=== PATIENT | female | born 1975 | race Two or more races ===

== ENCOUNTER → 2025-03-13 | Outpatient (CLI) | payer MEDICAID, SELFPAY ==
--- NOTE | 2025-03-13 15:00 | XR_ITS ---
Examination: Abdomen sonogram, complete Date and time of exam: March 13, 2025, 1522 hours INDICATIONS: Right upper abdominal pain today. Technique: Multiple real-time grayscale transabdominal sonographic images of the abdomen have been obtained. Findings: Contracted gallbladder multiple gallstones Gallbladder wall normal Common bile duct 0.2 cm Pancreatic head 2.6 cm Aorta not enlarged. Liver 13.1 cm fatty infiltration Normal hepatopedal portal venous flow Patent IVC Right kidney 10.7 cm cortex 1.2 cm Left kidney 12.6 cm renal cortex 1.8 cm Extrarenal pelvis bilaterally Spleen 11.7 cm IMPRESSION: Cholelithiasis, negative for cholecystitis
== END | disposition home or self-care (01) ==
LOC: CDIM 14:52
PROVIDERS: PCP Physician Assistant; Referring Provider Physician Assistant; Visit Provider Physician Assistant
DX: K80.20 Calculus of gallbladder without cholecystitis without obstruction (principal)
CPT/HCPCS: 76700